=== PATIENT | male | born 1995 | race Caucasian/White ===

== ENCOUNTER 2024-04-20 09:27 | Emergency (ER) | payer MEDICAID ==
[~2024-04-20] VITALS: Ht 167.6 cm; Wt 86.1 kg
[2024-04-20 09:33] VITALS: BP 147/92; PULSE 77; RESP 18; TEMP 36.6; O2SAT 99
[2024-04-20] MEDS ORDERED: IBUP-2028 MT (10:07)
== END 2024-04-20 10:57 | disposition home or self-care (01) ==
LOC: ER 09:27
DX: R07.81 Pleurodynia (principal)
CPT/HCPCS: 71101; 99283